=== PATIENT | female | born 1990 | race Caucasian/White ===

== ENCOUNTER 2021-02-09 20:44 | Emergency (ER) | payer SELFPAY ==
[2021-02-09 21:55] LABS: RED BLOOD COUNT 4.35 M/UL (4.00-5.10); WHITE BLOOD COUNT 10.2 K/UL (4.5-11.0)
[2021-02-09 22:11] LABS: BUN/CREATININE RATIO 21 (0-10)
[2021-02-10] MEDS ORDERED: OMNICEF 300 MG300 MG PO (00:42)
[2021-02-10] MEDS ORDERED: ZOFRAN4 MG PO (00:42)
== END 2021-02-10 00:45 | disposition home or self-care (01) ==
LOC: ER1 20:44
PROVIDERS: Internal Medicine
DX: F11.229 Opioid dependence with intoxication, unspecified (principal); N39.0 Urinary tract infection, site not specified; F12.23 Cannabis dependence with withdrawal; F15.90 Other stimulant use, unspecified, uncomplicated; F41.9 Anxiety disorder, unspecified; F17.210 Nicotine dependence, cigarettes, uncomplicated
CPT/HCPCS: 80053; 80307; 81001; 84703; 85025; 96372; 96374; 99284; J0696; J2405